=== PATIENT | male | born 1950 | race Caucasian/White ===

== ENCOUNTER 2022-01-23 22:38 | Emergency (ER) | payer MEDICARE, MEDICAID ==
[~2022-01-23] VITALS: Ht 167.6 cm; Wt 59.0 kg
--- NOTE | 2022-01-23 22:40 | NUR ---
Patient BIB [id number] from home. Per report, the daughter stated that the patient has been "lethargic" since 6pm today. Upon arrival, patient is A/Ox4, spontaneous eye opening, and able to follow commands. Patient c/o headache. No SOB, not in distress
--- NOTE | 2022-01-23 22:45 | NUR ---
Dr Irizarry in room for DORY
--- NOTE | 2022-01-23 22:45 | NUR ---
patient's daughter at bedside
--- NOTE | 2022-01-23 22:46 | NUR ---
patient walked to the restroom with steady gait
[2022-01-23] MEDS ORDERED: IV NORMAL SALINE 500 ML BAG IV ONE (23:00)
[2022-01-23] MEDS ORDERED: ONDANSETRON 4 MG/2 ML VIAL IV ONE (23:00)
[2022-01-23] MEDS ORDERED: HYDROCODONE/APAP 5-325MG TABLET PO ONE (23:00)
[2022-01-23] MEDS ORDERED: GLIM4TAB PO (23:02)
[2022-01-23] MEDS ORDERED: GABA-532 PO (23:02)
[2022-01-23] MEDS ORDERED: ASPI81TA31 PO (23:02)
[2022-01-23] MEDS ORDERED: ICOS1CAP PO (23:02)
[2022-01-23] MEDS ORDERED: PITA2TAB PO (23:02)
[2022-01-23] MEDS ORDERED: TAMS-3 PO (23:02)
[2022-01-23] MEDS ORDERED: EMPA10TA PO (23:02)
[2022-01-23] MEDS ORDERED: ALBU18HF2 IH (23:02)
[2022-01-23] MEDS ORDERED: PIOG30TA10 PO (23:02)
[2022-01-23] MEDS ORDERED: CLOB15OI3 TP (23:12)
[2022-01-23] MEDS ORDERED: FLUO118.7 TP (23:12)
[2022-01-23] MEDS ORDERED: LINA1TAB3 PO (23:14)
[2022-01-23] MEDS ORDERED: TAMSULOSIN HCL 0.4 MG CAP.SR.24H PO ONE (23:15)
[2022-01-23] MEDS ORDERED: ASPIRIN 81 MG TAB.CHEW PO ONE (23:15)
[2022-01-23 23:25] LABS: *BILIRUBIN,URIN NEGATIVE (NEGATIVE); *BLOOD, URINE NEGATIVE (NEGATIVE); *CLARITY,URINE CLEAR (CLEAR); *COLOR,URINE YELLOW (YELLOW); *KETONES,URINE NEGATIVE (NEGATIVE); *UROBILINOGEN,URINE 0.2 E.U./dl (NORMAL); LEUKOCYTE ESTERASE ,URINE NEGATIVE (NEGATIVE); NITRITE, URINE NEGATIVE (NEGATIVE); UGLUCOSE 2+ (NEGATIVE)
[2022-01-23] MEDS ORDERED: ASPIRIN 81 MG TAB.CHEW ONE (23:25)
[2022-01-23] MEDS ORDERED: ONDANSETRON 4 MG/2 ML VIAL ONE (23:25)
[2022-01-23] MEDS ORDERED: HYDROCODONE/APAP 5-325MG TABLET ONE (23:25)
[2022-01-23] MEDS ORDERED: TAMSULOSIN HCL 0.4 MG CAP.SR.24H ONE (23:25)
[2022-01-23 23:29] LABS: HEMATOCRIT 37.5 % (36.7-47.1); MEAN CORPUSCULAR HEMOGLOBIN 32.7 uug (23.8-33.4); MEAN CORPUSCULAR VOLUME 94.9 fL (73.0-96.2); PLATELET COUNT (AUTO) 164 K/uL (152-348)
[2022-01-23 23:36] LABS: CREATININE 1.1 mg/dL (0.6-1.3); POTASSIUM 4.1 mmol/L (3.5-5.1)
[2022-01-23] MEDS ORDERED: HYDR-4209 PO (23:43)
[2022-01-23 23:48] LABS: BILIRUBIN,DIRECT 0.1 mg/dL (0.0-0.2); BILIRUBIN,TOTAL 0.2 mg/dL (0.2-1.0); TOTAL PROTEIN, SERUM 7.2 g/dL (6.4-8.2)
--- NOTE | 2022-01-23 23:48 | NUR ---
Patient went for CT
--- NOTE | 2022-01-24 00:01 | NUR ---
Patient back from CT
--- NOTE | 2022-01-24 01:21 | NUR ---
Patient discharged to home in stable condition. Written and verbal after care instructions given. Patient verbalizes understanding of instructions. Stressed follow up or return to ER for worsening s/s. Patient is A/Ox4, not in distress, no CP. Patient is able to walk with steady gait. Patient is accompanied by daughter
[2022-01-24 01:25] VITALS: BP 112/61
== END 2022-01-24 01:25 | disposition home or self-care (01) ==
LOC: ER 22:44
DX: R51.9 Headache, unspecified (principal); T41.3X1A Poisoning by local anesthetics, accidental (unintentional), initial encounter; R53.83 Other fatigue; Y92.019 Unspecified place in single-family (private) house as the place of occurrence of the external cause; I10 Essential (primary) hypertension; E78.00 Pure hypercholesterolemia, unspecified; E11.9 Type 2 diabetes mellitus without complications; Z79.82 Long term (current) use of aspirin; Z79.899 Other long term (current) drug therapy; Z79.84 Long term (current) use of oral hypoglycemic drugs; G89.4 Chronic pain syndrome; M54.2 Cervicalgia
CPT/HCPCS: 36415; 70450; 71045; 80048; 80076; 81003; 85025; 85651; 85730; 93005; 96361; 96374; 99284; J2405; J7040; A4663